=== PATIENT | female | born 1975 | race Caucasian/White ===

== ENCOUNTER 2022-03-24 15:56 | Emergency (ER) | payer BC, SELFPAY ==
[2022-03-24 16:08] VITALS: BP 129/74; PULSE 68; RESP 16; TEMP 36.3; O2SAT 100
--- NOTE | 2022-03-24 16:33 | ED.URI ---
HPI - URI/Sore Throat General Chief Complaint: Upper Respiratory Infection Stated Complaint: sore throat Time Seen by Provider: 03/24/22 16:35 Source: patient Mode of arrival: ambulatory Limitations: no limitations History of Present Illness HPI Narrative: 47-year-old female presented for complaint of sore throat, bodyaches, and bilateral ear pain with some nasal congestion, onset yesterday. She states she was exposed 3 days ago to someone who tested positive for strep throat the following day. She has been gargling with warm salt water and states that her throat feels better today. She is from out of [facility] [place]. She endorses a history of allergies when she visits, but usually does not have body aches. She denies cough, shortness of breath, wheezing, nausea, vomiting, diarrhea, fever or chills. She has had one covid vacc. Related Data Home Medications Medication Instructions Recorded Confirmed levonorgestrel-ethinyl estradiol 1 tablet PO DAILY 03/24/22 03/24/22 0.1 mg-20 mcg tablet Allergies Allergy/AdvReac Type Severity Reaction Status Date / Time azithromycin AdvReac Intermediate Gastrointestinal Verified 03/24/22 16:24 Upset Review of Systems Review of Systems: All systems reviewed & are unremarkable except as noted in HPI and below [facility] Comments At time of signature, I have reviewed and agree with nursing past medical, surgical, social and family history unless otherwise noted. Please see nursing chart for further information. There is no relevant family history pertinent to the presenting complaint Exam Narrative: GENERAL: Well-appearing, HEAD: Normocephalic, atraumatic. EYES: EOMI. No redness or drainage. Conjunctivae normal. ENT: Mucous membranes pink and moist. No rhinorrhea. TMs normal bilaterally. Throat normal. Uvula midline. NECK: Normal AROM. Supple. No lymphadenopathy. CHEST: No respiratory distress. Clear to auscultation. HEART: Regular rate and rhythm. No murmur appreciated. Normal peripheral pulses. ABDOMEN: Soft, nontender, nondistended, normal active bowel sounds. MUSCULOSKELETAL: No bony tenderness. EXTREMITIES: Normal range of motion. No edema. SKIN: Warm, dry, no rash. Capillary refill normal. Normal skin turgor. NEURO: No focal deficits. Alert and oriented x3. Gait steady. PSYCH: Normal affect. No signs of depression or anxiety. Course Course Emergency Course: Patient is aware of diagnosis, understands and agrees to treatment plan. Anticipatory guidance given. Patient agrees to follow-up as directed and is aware of reasons to seek care at the emergency department. Portions of this record may have been created with voice recognition software Level of Care: Express Care Visit Vital Signs Vital signs: Vital Signs Temperature 97.4 F L 03/24/22 16:08 Pulse Rate 68 03/24/22 16:08 Respiratory Rate 16 03/24/22 16:08 Blood Pressure 129/74 03/24/22 16:08 Pulse Oximetry 100 03/24/22 16:08 Oxygen Delivery Room Air 03/24/22 16:08 Temperature 97.4 F L 03/24/22 16:08 Pulse Rate 68 03/24/22 16:08 Respiratory Rate 16 03/24/22 16:08 Blood Pressure 129/74 03/24/22 16:08 Pulse Oximetry 100 03/24/22 16:08 Oxygen Delivery Room Air 03/24/22 16:08 MDM - URI/Sore Throat Differential Diagnosis Differential diagnosis: Likely upper respiratory infection, sinusitis, viral infection and pharyngitis Lab Data Labs: Strep Screen Presumptive Negative *(Reference Range: Negative)* Discharge Plan Discharge Clinical Impression: Pharyngitis Patient Disposition: Home, Self-Care Condition: Stable Instructions: Antibiotic Form, Strep Throat (ED), Allergic Rhinitis (ED) Additional Instructions: Rapid strep swab was negative today You will be notified in a few days if the culture comes back positive for strep, and appropriate antibiotics will be called in
== END 2022-03-24 16:48 | disposition home or self-care (01) ==
PROVIDERS: Emergency Provider Nurse Practitioner Family
DX: J02.9 Acute pharyngitis, unspecified (principal)
CPT/HCPCS: 87081; 87880; 99213; G0463